=== PATIENT | male | born 1995 | race Two or more races ===

== ENCOUNTER 2020-01-03 16:21 | Emergency (ER) | payer OTHER ==
[~2020-01-03] VITALS: Ht 182.9 cm; Wt 79.4 kg
--- NOTE | 2020-01-03 16:30 | NUR ---
PT BIBRA TO ED BED 14 ACCOMPANIED BY PD. HERE FOR MEDICAL CLEARANCE PRIOR TO BOOKING. PT IS [employer]. ADMITS TO METH USE THIS MORNING BUT DENIES CHEST PAIN. PLACED ON MONITOR. AWAITING MD SIMEON.
--- NOTE | 2020-01-03 16:48 | NUR ---
DR HAWK AT BEDSIDE FOR EVAL.
--- NOTE | 2020-01-03 16:58 | NUR ---
IV LINE STARTED BLOOD DRAWN AND SENT TO LAB.
[2020-01-03] MEDS ORDERED: LORAZEPAM INJ 2 MG/ML VIAL IV ONE (17:00)
[2020-01-03] MEDS ORDERED: IV NS 0.9% 1,000 ML BAG IV ONE (17:00)
[2020-01-03] MEDS ORDERED: LORAZEPAM INJ 2 MG/ML VIAL ONE (17:01)
[2020-01-03 17:03] LABS: BASOPHILS # (AUTO) 0.1 /CMM (0.0-0.2); BASOPHILS % (AUTO) 0.4 % (0.0-2.0); EOSINOPHILS % (AUTO) 1.5 % (0.0-6.0); HEMATOCRIT 45 % (39-51); HEMOGLOBIN 15.5 g/dL (13.5-17.5); LYMPHOCYTES # (AUTO) 2.1 /CMM (0.8-4.8); LYMPHOCYTES % (AUTO) 16.5 % (20.0-44.0); MEAN CORPUSCULAR HGB CONC 34 g/dl (31.0-36.0); MEAN CORPUSCULAR VOLUME 89 fL (80-96); MONOCYTES # (AUTO) 0.7 /CMM (0.1-1.30); MONOCYTES % (AUTO) 5.4 % (2.0-12.0); NEUTROPHILS # (AUTO) 9.6 /CMM (1.8-8.9); NEUTROPHILS % (AUTO) 76.2 % (43.0-81.0); PLATELET COUNT (AUTO) 343 /CMM (150-450); RED BLOOD CELL COUNT(AUTO) 5.11 MIL/uL (4.5-6.0); WHITE BLOOD COUNT (AUTO) 12.7 K/uL (4.3-11.0)
[2020-01-03 17:14] LABS: CALCIUM, SERUM 9.4 mg/dL (8.5-10.1); CARBON DIOXIDE 27 mmol/L (21-32); CHLORIDE 102 mmol/L (98-107); CREATININE 1.1 mg/dL (0.6-1.3); GLUCOSE 111 mg/dL (74-106); POTASSIUM 3.9 mmol/L (3.5-5.1); SODIUM SERUM 139 mmol/L (136-145); UREA NITROGEN, BLOOD 14 mg/dL (7-18)
--- NOTE | 2020-01-03 17:59 | NUR ---
Patient discharged to home in stable condition. Written and verbal after care instructions given. Patient verbalizes understanding of instruction. OK TO BOOK
[2020-01-03 18:04] VITALS: BP 128/70
== END 2020-01-03 18:05 ==
LOC: ER 16:26
DX: R41.82 Altered mental status, unspecified (principal); R00.0 Tachycardia, unspecified; F15.90 Other stimulant use, unspecified, uncomplicated; D69.6 Thrombocytopenia, unspecified; Z60.2 Problems related to living alone; Z02.89 Encounter for other administrative examinations
CPT/HCPCS: 36415; 71045; 80048; 84484; 85025; 93005; 96374; 99284; J2060; J7030